=== PATIENT | female | born 1945 | race Caucasian/White ===

== ENCOUNTER → 2016-03-29 | Day surgery (SDC) | payer BC ==
[2016-03-28 15:19] VITALS: BMI 25.0
[~2016-03-29] VITALS: Ht 162.6 cm; Wt 68.2 kg
[~2016-03-29] MED LIST: BRIN3SUS OPL; CALC-20 PO; CHOL20009 PO; LIDOCAINE HCL 2% 2 ML VIAL (20MG/ML) ONE; LOSA50TA6 PO; MAGN250T3 PO; MIDAZOLAM HCL 1 MG/ML 2ML VIAL ONE; ONDANSETRON INJ 2 MG/ML 2 ML VIAL ONE; PROPOFOL IV EMULSION 10 MG/ML 20 ML VIAL IV ONE; RANI150T2 PO; SIMV20TA2 PO; SODIUM CHLORIDE 0.9% 500ML 500 ML IV ONE; WARF2TAB PO; WARF2TAB8 PO; WARF4TAB43 PO; ZNTT/150 PO
[2016-03-29 11:32] VITALS: Ht 162.6 cm; Wt 68.2 kg
--- NOTE | 2016-03-29 12:30 | Endo History and Physical ---
History & Physical Date of Service: Mar 29, 2016. Chief Complaint: Reflux Referring Physician: Dr. Albert History of Present Illness 70 yo CF who presents for EGD secondary to GERD. Past Surgical History Hx Cardiac Surgery: No Hx Internal Defibrillator: No Hx Pacemaker: No Hx Abdominal Surgery: No Hx of Implantable Prosthesis: No Hx Post-Op Nausea and Vomiting: No Hx Cancer Surgery: No Hx Thoracic Surgery: No Hx Orthopedic: No Hx Urinary Tract Surgery: No Family History None Social History Smoking Status: Never Smoker Hx Substance Use: No Hx Alcohol Use: No Allergies Coded Allergies: Ephedrine (Verified Adverse Reaction, Unknown, CAUSES BLOOD PRESSURE TO GO UP, 03/28/16) Current Medications Reported Home Medications Medications Dose Route/Sig Max Daily Dose Days Date Category Dose Instructions Simbrinza (Brinzolamide-Brimonidine Tartr) 1 Shiela Shiela 1 Drop OPL BID 03/28/16 Reported Zantac (Ranitidine HCl) 150 Mg Tab 150 Mg PO BID 03/28/16 Reported Magnesium 250 mg (Magnesium) 1 Tab Tab 1 Tab PO QAM 03/28/16 Reported Zocor (Simvastatin) 20 Mg Tab 20 Mg PO QPM 90 02/03/16 Reported Jantoven (Warfarin Sodium) 2 Mg Tab 1 Mg PO 3XWK 03/01/15 Reported Coumadin (Warfarin Sodium) 2 Mg Tab 2 Mg PO 4XWK 02/23/15 Reported Calcium 600 + D (Calcium Carbonate-Vitamin D) 1 Tab Tab 1 Tabs PO BID 02/12/13 Reported Cozaar (Losartan Potassium) 50 Mg Tab 50 Mg PO BID 02/12/13 Reported WILL TAKE IN PM DEPENDING ON BP Vital Signs Weight (Kilograms): 68.18 Height (Feet): 5 Height (Inches): 4 Date Time Temp Pulse Resp B/P Pulse Ox O2 Delivery O2 Flow Rate FiO2 03/29/16 11:43 36.7 96 20 165/69 95 Room Air Physical Exam General Appearance: WD/WN, no apparent distress Respiratory/Chest: Auscultation: breath sounds normal Cardiovascular: Heart Auscultation: RRR Abdomen: Bowel Sounds: normal Inspection & Palpation: soft, non-distended, no tenderness, guarding & rebound Assessment and Plan Assessment: 70 yo CF who presents for EGD secondary to GERD. Plan: Proceed with EGD.
--- NOTE | 2016-03-29 12:41 | Discharge Instructions ---
Endoscopy Patient Instructions Date / Procedure(s) Performed Mar 29, 2016. EGD Allergy Information Coded Allergies: Ephedrine (Verified Adverse Reaction, Unknown, CAUSES BLOOD PRESSURE TO GO UP, 03/28/16) Discharge Date / Findings Mar 29, 2016. Schatzki's Ring Hiatal hernia Medication Instructions OK to resume all medications today as prescribed Reported Home Medications Medications Dose Route/Sig Max Daily Dose Days Date Category Dose Instructions Simbrinza (Brinzolamide-Brimonidine Tartr) 1 Shiela Shiela 1 Drop OPL BID 03/28/16 Reported Zantac (Ranitidine HCl) 150 Mg Tab 150 Mg PO BID 03/28/16 Reported Magnesium 250 mg (Magnesium) 1 Tab Tab 1 Tab PO QAM 03/28/16 Reported Zocor (Simvastatin) 20 Mg Tab 20 Mg PO QPM 90 02/03/16 Reported Jantoven (Warfarin Sodium) 2 Mg Tab 1 Mg PO 3XWK 03/01/15 Reported Coumadin (Warfarin Sodium) 2 Mg Tab 2 Mg PO 4XWK 02/23/15 Reported Calcium 600 + D (Calcium Carbonate-Vitamin D) 1 Tab Tab 1 Tabs PO BID 02/12/13 Reported Cozaar (Losartan Potassium) 50 Mg Tab 50 Mg PO BID 02/12/13 Reported WILL TAKE IN PM DEPENDING ON BP Provider Instructions Activity Restrictions - No exercising or heavy lifting for 24 hours. - Do not drink alcohol the day of the procedure. - Do not drive a car or operate machinery until the day after the procedure. - Do not make any important decisions or sign important papers in 24 hours after the procedure. Following Day: - Return to full activity which may include returning to work/school. Diet Start your diet with liquids and light foods (jello, soup, juice, toast). Then eat your usual diet if not nauseated. Treatment For Common After Affects For mild abdominal pain, bloating, or excessive gas: - Rest - Eat lightly - Lie on right side Follow-Up Information Follow-up with Dr. Albert as scheduled Anesthesia Information What You Should Know You have had a procedure that required some medicine to reduce anxiety and discomfort. This treatment is called moderate sedation. After receiving the treatment, you may be sleepy, but you will be able to breathe on your own. The effects of the treatment may last for several hours. Follow these instructions along with Activity/Diet recommendations noted above: * Do NOT do anything where dizziness or clumsiness would be dangerous. * Rest quietly at home today, then you can be up and about tomorrow. * Have a responsible person stay with you the rest of today. * You may have had an I.V. today. If so, you may take the dressing off later today. Recommendations Call your doctor if: * Trouble breathing * Continuous vomiting for more than 24 hours * Temperature above 101 degrees * Severe abdominal pain or bloating * Pain not relieved by pain medicine ordered * There is increased drainage or redness from any incision * A large amount of rectal bleeding greater than 2-3 tablespoons. (If you had a polyp/s removed or have hemorrhoids, a small amount of blood - from the rectum is to be expected.) * You have any unanswered questions or concerns. IN THE EVENT OF A SERIOUS EMERGENCY, GO TO THE NEAREST EMERGENCY ROOM Your discharge instructions were prepared by provider Angel John. Patient Instructions Signature Page Zakiya Cooper Patient (or Guardian) Signature/Date: I have read and understand the instructions given to me by my caregivers. Caregiver/RN/Doctor Signature/Date: The above-named patient and/or guardian has received patient instructions on this date. + Original Patient Signature Page (only) stays with chart. Please make copy for patient.
--- NOTE | 2016-03-29 12:44 | GI REPORT ---
Procedure Date: 03/29/2016 12:14 PM Procedure: Upper GI endoscopy Indications: Follow-up of gastro-esophageal reflux disease Medicines: Monitored Anesthesia Care Complications: No immediate complications. Estimated Blood Loss: Estimated blood loss: none. Procedure: Pre-Anesthesia Assessment: - Prior to the procedure, a History and Physical was performed, and patient medications and allergies were reviewed. The patient's tolerance of previous anesthesia was also reviewed. The risks and benefits of the procedure and the sedation options and risks were discussed with the patient. All questions were answered, and informed consent was obtained. Prior Anticoagulants: The patient has taken Coumadin (warfarin), last dose was 5 days prior to procedure. ASA Grade Assessment: III - A patient with severe systemic disease. After reviewing the risks and benefits, the patient was deemed in satisfactory condition to undergo the procedure. After obtaining informed consent, the endoscope was passed under direct vision. Throughout the procedure, the patient's blood pressure, pulse, and oxygen saturations were monitored continuously. The Scope was introduced through the mouth, and advanced to the second part of duodenum. The upper GI endoscopy was accomplished without difficulty. The patient tolerated the procedure well. Findings: A mild Schatzki ring (acquired) was found at the gastroesophageal junction. A small hiatus hernia was present. The examined duodenum was normal. Impression: - Mild Schatzki ring. - Small hiatus hernia. - Normal examined duodenum. - No specimens collected. Recommendation: - Resume previous diet. - Continue present medications. - Repeat the upper endoscopy PRN for retreatment. - Return to primary care physician as previously scheduled. Angel John, DO 03/29/2016 12:43:24 PM This report has been signed electronically. Note Initiated On: 03/29/2016 12:14 PM
[2016-03-29 13:28] VITALS: BP 117/55; PULSE 83; O2SAT 97
--- NOTE | 2016-03-29 14:06 | Anesthesiology Progress Note ---
Anesthesia Post Op Note Date & Time Mar 29, 2016 at 14:05 Vital Signs Pain Intensity: 0 Vital Signs Past 12 Hours Date Time Temp Pulse Resp B/P Pulse Ox O2 Delivery O2 Flow Rate FiO2 03/29/16 13:28 83 18 117/55 97 Room Air 03/29/16 13:17 85 18 110/58 97 Room Air 03/29/16 13:02 90 18 115/55 97 Nasal Cannula 2 03/29/16 12:48 92 18 114/54 95 Nasal Cannula 2 03/29/16 11:43 36.7 96 20 165/69 95 Room Air Notes Mental Status: alert / awake / arousable, participated in evaluation Pt Amnestic to Procedure: Yes Nausea / Vomiting: adequately controlled Pain: adequately controlled Airway Patency, RR, SpO2: stable & adequate BP & HR: stable & adequate Hydration State: stable & adequate Anesthetic Complications: no major complications apparent
== END | disposition home or self-care (01) ==
LOC: C.GI 11:18
PROVIDERS: ATTEND Internal Medicine
DX: K21.9 Gastro-esophageal reflux disease without esophagitis (principal); K22.2 Esophageal obstruction; K44.9 Diaphragmatic hernia without obstruction or gangrene; I10 Essential (primary) hypertension; Z68.25 Body mass index [BMI] 25.0-25.9, adult; Z86.718 Personal history of other venous thrombosis and embolism

== ENCOUNTER → 2016-04-07 | Outpatient (CLI) | payer BC, OTHER ==
[~2016-04-07] MED LIST changes: -LIDOCAINE HCL 2% 2 ML VIAL (20MG/ML) ONE; -MIDAZOLAM HCL 1 MG/ML 2ML VIAL ONE; -ONDANSETRON INJ 2 MG/ML 2 ML VIAL ONE; -PROPOFOL IV EMULSION 10 MG/ML 20 ML VIAL IV ONE; -SODIUM CHLORIDE 0.9% 500ML 500 ML IV ONE
[2016-04-07 14:55] LABS: URINE APPEARANCE CLEAR (CLEAR); URINE BILIRUBIN NEG (NEG); URINE COLOR YELLOW; URINE NITRITE NEG (NEG); URINE PH 5.5 (4.5-7.5); URINE SPECIFIC GRAVITY 1.016 (1.000-1.030); UROBILINOGEN NEG (NEG); ZZUR CULT IF INDIC CLEAN CATCH NO
[2016-04-07 15:01] LABS: MANUAL MICROSCOPIC REQUIRED? NO; REVIEW REQ? NO
== END | disposition home or self-care (01) ==
LOC: C.LABSPEC 15:13
PROVIDERS: ATTEND Family Medicine
DX: R39.9 Unspecified symptoms and signs involving the genitourinary system (principal); R10.9 Unspecified abdominal pain

== ENCOUNTER → 2016-04-07 | Outpatient (CLI) | payer BC ==
--- NOTE | 2016-04-07 12:27 | DIAGNOSTIC IMAGING REPORT ---
CHEST 2 VIEWS ROUTINE HISTORY: R05 [id number] Acute flank pain COMPARISON: Chest 03/11/2015. FINDINGS: The lungs are clear. The heart is normal in size. No pneumothorax. There is blunting of the bilateral costophrenic sulci posteriorly. Degenerative changes within the thoracic spine. IMPRESSION: 1. No focal lung consolidations. 2. Blunting of the bilateral posterior costophrenic sulci. This favors trace bilateral pleural effusions. Electronically signed by: Kenji Ayon M.D. 04/07/2016 12:25 PM Dictated Date/Time: 04/07/2016 12:23 PM
== END | disposition home or self-care (01) ==
LOC: C.RAD1850 12:02
PROVIDERS: ATTEND Family Medicine
DX: R10.9 Unspecified abdominal pain (principal); R05 Cough

== ENCOUNTER 2016-08-26 10:05 | Emergency (ER) | payer BC ==
[~2016-08-26] VITALS: Ht 165.1 cm; Wt 67.0 kg
[~2016-08-26 10:05] MED LIST changes: -RANI150T2 PO; -WARF4TAB43 PO
[2016-08-26 10:11] VITALS: TEMP 36.7; Ht 165.1 cm; Wt 67.0 kg
[2016-08-26] MEDS ORDERED: RANI150T2 PO (10:30)
[2016-08-26] MEDS ORDERED: WARF4TAB43 PO (10:30)
[2016-08-26 10:56] LABS: BASO % 0.8 %; BASO ABS # 0.05 K/uL (0-0.2); COMPLETE YES; EOS % 0.7 %; IG% 0.3 %; LYMPH % 36.7 %; LYMPH ABS # 2.21 K/uL (1.2-3.4); MEAN CORPUSCULAR HEMOGLOBIN 29.8 pg (25-34); MEAN CORPUSCULAR HGB CONC 33.9 g/dl (32-36); MEAN PLATELET VOLUME 10.2 fL (7.4-10.4); MONO % 8.5 %; PLATELET COUNT 253 K/uL (130-400); WHITE BLOOD COUNT 6.02 K/uL (4.8-10.8)
[2016-08-26 11:10] LABS: CALCIUM 9.3 mg/dl (8.5-10.1); CREATININE 1.1 mg/dl (0.60-1.20); POTASSIUM 3.7 mmol/L (3.5-5.1)
[2016-08-26 11:13] LABS: ALB/GLOB RATIO 1.1 (0.9-2)
[2016-08-26 11:26] LABS: INR 2.3 (0.9-1.1); PARTIAL THROMBOPLASTIN RATIO 1.4; PROTHROMBIN TIME (PATIENT) 25.3 SECONDS (9.0-12.0)
--- NOTE | 2016-08-26 11:30 | EMERGENCY ROOM VISIT NOTE ---
History Report prepared by Noah: Karen Morales Under the Supervision of: Dr. Faizan Romano M.D. First contact with patient: 11:04 Chief Complaint: HYPERTENSION Stated Complaint: FLUCTUATIONS OF BLOOD PRESSURE, PRESSURE IN HEAD History of Present Illness The patient is a 71 year old female who presents to the Emergency Room with complaints of waxing and waning hypertension for the past week. The patient reports a history of hypertension, noting that she takes Cozaar for her hypertension. She states that over the last week her levels have been fluctuating. The patient additionally associates weakness, fatigue, and head pressure with her symptoms today. She additionally reports that she has a history of PE and DVTs, noting that she is on Coumadin. The patient expresses concern for a new blood clot, and is unsure if that is why her blood pressure has risen. She reports that typically can get her blood pressure under control. The patient reports that on August 08 she had a blood pressure of 200 mmHg systolically. She states that today it has fluctuated between 100 mmHg and 150 mmHg. The patient reports normal bowel movements. She associates back pain for the past few days. Source of History: patient Onset: past week Position: other (global) Symptom Intensity: 100-150 mmHg Quality: other (hypertension) Timing: waxes/wanes Associated Symptoms: + headache (pressure), + back pain, + fatigue, + weakness Review of Systems All systems have been listed, reviewed, and are negative other than those previously mentioned. Please see Additional Medical History Sheet. Past Medical & Surgical Medical Problems: (1) Bilateral pulmonary embolism (2) Heart disease (3) Hypertension Family History FHx: heart disease Hypertension Social History Smoking Status: Never Smoker Smokeless Tobacco Use: No Alcohol Use: none Marital Status: Housing Status: lives with family Occupation Status: retired Current/Historical Medications Scheduled Brinzolamide-Brimonidine Tartr (Simbrinza), 1 DROP OPL BID Calcium Carbonate-Vitamin D (Calcium 600 + D), 1 TABS PO BID Cholecalciferol (Vitamin D), 1 TAB PO BID Losartan Potassium (Cozaar), 50 MG PO BID Magnesium (Magnesium 250 mg), 1 TAB PO QAM Ranitidine (Zantac), 150 MG PO BID Ranitidine HCl (Ranitidine HCl), 150 MG PO BID Simvastatin (Zocor), 20 MG PO QPM Warfarin Sodium (Coumadin), 2 MG PO 4XWK Warfarin Sodium (Warfarin Sodium), 1 MG PO 3XWK Allergies Coded Allergies: Ephedrine (Verified Adverse Reaction, Unknown, CAUSES BLOOD PRESSURE TO GO UP, 08/26/16) Physical Exam Vital Signs Date Time Temp Pulse Resp B/P (MAP) Pulse Ox O2 Delivery O2 Flow Rate FiO2 08/26/16 13:33 74 14 136/68 08/26/16 13:18 70 16 08/26/16 13:03 65 15 08/26/16 13:02 133/70 08/26/16 12:48 74 25 08/26/16 12:43 80 13 08/26/16 12:28 81 22 97 08/26/16 12:13 80 17 97 08/26/16 12:02 138/85 08/26/16 11:58 77 23 98 08/26/16 11:28 81 19 08/26/16 11:23 154/96 08/26/16 11:20 91 17 08/26/16 11:05 85 19 08/26/16 10:50 91 14 08/26/16 10:40 150/88 08/26/16 10:35 93 15 08/26/16 10:24 103 08/26/16 10:20 105 14 08/26/16 10:11 36.7 112 17 140/75 99 Room Air Physical Exam GENERAL: Patient awake, alert, oriented x 3. Patient is very anxious. Patient follows commands. Patient does not appear toxic. Patient is adequately hydrated and well-nourished. SKIN: No erythema, pallor, cyanosis or rash HEENT: Normal head, pupils equal, reactive to light and accommodation. Ears normal. Oral cavity and posterior pharynx appear normal. Neck: Without adenopathy, no neck vein distention. LUNGS: Clear to auscultation. No wheezes, no rales, no rhonchi. HEART: No murmurs. No gallops. No rubs ABDOMEN: No masses, no rebound, no hepatomegaly or splenomegaly. BACK: Left upper back pain to palpation. EXTREMITIES: No signs of trauma. No pedal or pretibial edema. No calf or thigh tenderness. NEUROLOGIC: Cranial nerves II-XII within normal limits. No gross motor sensory function deficits. PSYCH: Patient is very anxious. Medical Decision & Procedures ER Provider Diagnostic Interpretation: X ray results are stated below per my interpretation and the radiologist's interpretation. CHEST 2 VIEWS ROUTINE CLINICAL HISTORY: Left upper back pain. COMPARISON STUDY: Chest radiograph April 07, 2016. FINDINGS: Lung volumes are normal. There is no pneumothorax or pleural effusion. Cardiac size is normal. There is no evidence of pulmonary edema. Blunting of the bilateral costophrenic angles suggests trace bilateral pleural effusions. There is no consolidation. IMPRESSION: 1. No consolidation to suggest pneumonia. 2. No pneumothorax. 3. Suspected trace bilateral pleural effusions. Electronically signed by: Neeraj Carrera M.D. 08/26/2016 12:10 PM Dictated Date/Time: 08/26/2016 12:08 PM Laboratory Results 08/26/16 10:38 Red Blood Count 5.00, Mean Corpuscular Volume 88.0, Mean Corpuscular Hemoglobin 29.8, Mean Corpuscular Hemoglobin Concent 33.9, Mean Platelet Volume 10.2, Neutrophils (%) (Auto) 53.0, Lymphocytes (%) (Auto) 36.7, Monocytes (%) (Auto) 8.5, Eosinophils (%) (Auto) 0.7, Basophils (%) (Auto) 0.8, Neutrophils # (Auto) 3.19, Lymphocytes # (Auto) 2.21, Monocytes # (Auto) 0.51, Eosinophils # (Auto) 0.04, Basophils # (Auto) 0.05 08/26/16 10:38 Test 08/26/16 10:38 White Blood Count 6.02 K/uL (4.8-10.8) Red Blood Count 5.00 M/uL (4.2-5.4) Hemoglobin 14.9 g/dL (12.0-16.0) Hematocrit 44.0 % (37-47) Mean Corpuscular Volume 88.0 fL (80-100) Mean Corpuscular Hemoglobin 29.8 pg (25-34) Mean Corpuscular Hemoglobin Concent 33.9 g/dl (32-36) Platelet Count 253 K/uL (130-400) Mean Platelet Volume 10.2 fL (7.4-10.4) Neutrophils (%) (Auto) 53.0 % Lymphocytes (%) (Auto) 36.7 % Monocytes (%) (Auto) 8.5 % Eosinophils (%) (Auto) 0.7 % Basophils (%) (Auto) 0.8 % Neutrophils # (Auto) 3.19 K/uL (1.4-6.5) Lymphocytes # (Auto) 2.21 K/uL (1.2-3.4) Monocytes # (Auto) 0.51 K/uL (0.11-0.59) Eosinophils # (Auto) 0.04 K/uL (0-0.5) Basophils # (Auto) 0.05 K/uL (0-0.2) RDW Standard Deviation 44.4 fL (36.4-46.3) RDW Coefficient of Variation 13.7 % (11.5-14.5) Immature Granulocyte % (Auto) 0.3 % Immature Granulocyte # (Auto) 0.02 K/uL (0.00-0.02) Prothrombin Time 25.3 SECONDS (9.0-12.0) Prothromb Time International Ratio 2.3 (0.9-1.1) Activated Partial Thromboplast Time 36.2 SECONDS (21.0-31.0) Partial Thromboplastin Ratio 1.4 Anion Gap 10.0 mmol/L (3-11) Est Creatinine Clear Calc Drug Dose 41.0 ml/min Estimated GFR () 57.7 Estimated GFR (Non- 49.8 BUN/Creatinine Ratio 15.0 (10-20) Calcium Level 9.3 mg/dl (8.5-10.1) Total Bilirubin 1.5 mg/dl (0.2-1) Aspartate Amino Transf (AST/SGOT) 14 U/L (15-37) Alanine Aminotransferase (ALT/SGPT) 28 U/L (12-78) Alkaline Phosphatase 88 U/L (45-117) Troponin I < 0.015 ng/ml (0-0.045) Total Protein 7.9 gm/dl (6.4-8.2) Albumin 4.1 gm/dl (3.4-5.0) Globulin 3.8 gm/dl (2.5-4.0) Albumin/Globulin Ratio 1.1 (0.9-2) Laboratory results as stated above per my review. ECG Indication: other (hypertension) Rate (beats per minute): 99 Rhythm: normal sinus Findings: no acute ischemic change, no ectopy ED Course 1105: Past medical records reviewed. The patient was evaluated in room B10. A complete history and physical examination was performed. 1235: I reevaluated the patient and she is still very anxious. I discussed the exam findings with her and her daughter and I discussed the treatment plan. They verbalized complete understanding and agreement. The patient is ready to go home. Medical Decision Nurses notes reviewed. Medical history sheet reviewed. Differential diagnosis includes but is not limited to: anxiety, hypertension, history of DVT and PE. The patient is extremely anxious. She has been adjusting her losartan and diuretic according to her blood pressure. Testing today including multiple blood tests, EKG and imaging did not reveal any significant pathology. She does have some very small bilateral pleural effusions which I do not believe require treatment. I have attempted to reassure the patient. I told the patient that she should take the same antihypertensive and diuretic daily unless she has significant peripheral edema. The patient was also encouraged to follow-up with her family physician. Blood Pressure Screening: Patient was found to have an elevated blood pressure and was referred to their primary doctor for recheck and further treatment. Medication Reconciliation: I attest that I have personally reviewed the patient' s current medication list. Impression Primary Impression: Hypertension Additional Impression: Anxiety Scribe Attestation The scribe's documentation has been prepared under my direction and personally reviewed by me in its entirety. I confirm that the note above accurately reflects all work, treatment, procedures, and medical decision making performed by me. Departure Information Dispostion Home / Self-Care Referrals Manuelito Albert M.D. (PCP) Forms HOME CARE DOCUMENTATION FORM, IMPORTANT VISIT INFORMATION Patient Instructions My [facility] [employer] Additional Instructions Take the same amount of losartan and diuretic on a daily basis. Follow-up with Dr. Albert within the next 10 days. Problem Qualifiers
--- NOTE | 2016-08-26 12:11 | DIAGNOSTIC IMAGING REPORT ---
CHEST 2 VIEWS ROUTINE CLINICAL HISTORY: Left upper back pain. COMPARISON STUDY: Chest radiograph April 07, 2016. FINDINGS: Lung volumes are normal. There is no pneumothorax or pleural effusion. Cardiac size is normal. There is no evidence of pulmonary edema. Blunting of the bilateral costophrenic angles suggests trace bilateral pleural effusions. There is no consolidation. IMPRESSION: 1. No consolidation to suggest pneumonia. 2. No pneumothorax. 3. Suspected trace bilateral pleural effusions. Electronically signed by: Neeraj Carrera M.D. 08/26/2016 12:10 PM Dictated Date/Time: 08/26/2016 12:08 PM
[2016-08-26 12:28] VITALS: O2SAT 97
[2016-08-26 13:33] VITALS: BP 136/68; PULSE 74
[2016-12-28] MEDS ORDERED: PHYT100T PO (14:22)
[2017-01-19] MEDS ORDERED: SIME1CHW3 PO (09:36)
[2017-02-15] MEDS ORDERED: DORZ1SOL6 OPL (15:02)
== END 2016-08-26 13:46 | disposition home or self-care (01) ==
LOC: C.EDB 10:06
DX: I10 Essential (primary) hypertension (principal); F41.9 Anxiety disorder, unspecified; I26.99 Other pulmonary embolism without acute cor pulmonale; I51.9 Heart disease, unspecified; Z82.49 Family history of ischemic heart disease and other diseases of the circulatory system; Z79.01 Long term (current) use of anticoagulants; Z51.81 Encounter for therapeutic drug level monitoring

== ENCOUNTER 2016-12-08 09:18 | Emergency (ER) | payer BC ==
[~2016-12-08] VITALS: Ht 162.6 cm; Wt 69.5 kg
[~2016-12-08 09:18] MED LIST changes: -LOSA50TA6 PO; -WARF2TAB8 PO; +WARF4TAB43 PO
[2016-12-08 09:25] VITALS: TEMP 36.6; Ht 162.6 cm; Wt 69.5 kg
[2016-12-08 11:31] LABS: LYME DISEASE AB IGG NEG (NEG); LYME DISEASE AB IGM NEG (NEG)
[2016-12-08 11:41] VITALS: BP 167/99; PULSE 84; O2SAT 98
--- NOTE | 2016-12-08 15:32 | EMERGENCY ROOM VISIT NOTE ---
History Report prepared by Noah: Karen Morales Under the Supervision of: Yeni CardonaO. First contact with patient: 09:33 Chief Complaint: BITE Stated Complaint: INSECT BITE/ITCHING/PAINFUL History of Present Illness The patient is a 71 year old female who presents to the Emergency Room with complaints of a sudden insect bite to her right leg that occurred several days ago. The patient reports that she saw the bite yas on Sunday and states that she developed a rash and pain to the area. The patient states that she is concerned about Lyme Disease. She states that she does not know what bit her. The patient states that she takes Coumadin, noting that her INR yesterday was 2.1. Pt denies headache, change in vision, fevers, chest pain, shortness of breath, nausea, vomiting, diarrhea, and pain with urination. Source of History: patient Onset: several days ago Position: leg (right) Quality: other (insect bite) Timing: other (sudden) Associated Symptoms: + rash Review of Systems See HPI for pertinent positives & negatives. A total of 10 systems reviewed and were otherwise negative. Past Medical & Surgical Medical Problems: (1) Bilateral pulmonary embolism (2) Heart disease (3) Hypertension Family History FHx: heart disease Hypertension Social History Smoking Status: Never Smoker Alcohol Use: none Marital Status: Housing Status: lives with family Occupation Status: retired Current/Historical Medications Scheduled Brinzolamide-Brimonidine Tartr (Simbrinza), 1 DROP OPL BID Calcium Carbonate-Vitamin D (Calcium 600 + D), 1 TABS PO BID Cholecalciferol (Vitamin D), 1 TAB PO BID Magnesium (Magnesium 250 mg), 1 TAB PO QAM Ranitidine (Zantac), 150 MG PO BID Simvastatin (Zocor), 20 MG PO QPM Warfarin Sodium (Coumadin), 2 MG PO 3XWK Warfarin Sodium (Warfarin Sodium), 1 MG PO 4XWK Allergies Coded Allergies: Ephedrine (Verified Adverse Reaction, Unknown, CAUSES BLOOD PRESSURE TO GO UP, 12/08/16) Physical Exam Vital Signs Date Time Temp Pulse Resp B/P (MAP) Pulse Ox O2 Delivery O2 Flow Rate FiO2 12/08/16 11:41 84 18 167/99 98 Room Air 12/08/16 10:31 86 18 151/91 97 Room Air 12/08/16 09:25 36.6 110 17 171/104 98 Room Air Physical Exam GENERAL: alert, well appearing, well nourished, no distress, non-toxic LUNGS: Clear to auscultation. Normal chest wall mechanics HEART: no murmurs, S1 normal and S2 normal ABDOMEN: abdomen soft, non-tender, normo-active bowel sounds, no masses, no rebound or guarding. SKIN: At the right posterior popliteal fossa there is a 1.5 cm x 1.5 cm area of erythema with a central pustule. UPPER EXTREMITIES: upper extremities are grossly normal. LOWER EXTREMITIES: No pitting edema. NEURO EXAM: Normal sensorium. Medical Decision & Procedures Laboratory Results Test 12/08/16 10:29 Lyme Disease IgG Antibody NEG (NEG) Lyme Disease IgM Antibody NEG (NEG) Laboratory results per my review. ED Course ED COURSE: Vital signs were reviewed and showed hypertensive The patients medical record was reviewed The above diagnostic studies were performed and reviewed. ED treatments and interventions as stated above. 0944: The patient was evaluated in room B5. A complete history and physical examination was performed. 1202: Upon reevaluation, the patient is resting comfortably.I discussed my findings with the patient and she understands and agrees with the treatment plan. Based on the patients age, coexisting illnesses, exam and lab findings the decision to treat as an outpatient was made. The patient remained stable while under my care. The patient appeared well at the time of discharge. Medical Decision Differential diagnosis includes etiologies such as cellulitis, abscess, MRSA infection, DVT, necrotizing fasciitis, dermatitis, drug eruption, as well as others were entertained. Patient is a 71-year-old female that presents to ER for erythema and concern of a tick bite in her right popliteal fossa. On exam he does appear to be a pustule. Lyme was obtained and was negative. Pustule was broken open. She is discharged follow-up with her PCP. There is no significant surrounding erythema without no benefit of antibiotics at this time. Discussed with Pt concerning signs and symptoms to watch out for. Pt was instructed to follow up with their PCP and discussed with the patient their option to return to the ED at anytime for persistent or worsening symptoms. The appropriate anticipatory guidance and out-patient management, including indications for return to the emergency department, were explained at length to the patient and understood. Medication Reconcilliation Current Medication List: was personally reviewed by me Blood Pressure Screening Patient's blood pressure: Elevated blood pressure Blood pressure disposition: Elevated BP felt to be situational, Did not require urgent referral Impression Primary Impression: Pustule Scribe Attestation The scribe's documentation has been prepared under my direction and personally reviewed by me in its entirety. I confirm that the note above accurately reflects all work, treatment, procedures, and medical decision making performed by me. Departure Information Dispostion Home / Self-Care Referrals ProManuelito M.D. (PCP) Forms HOME CARE DOCUMENTATION FORM, IMPORTANT VISIT INFORMATION Patient Instructions ED Cyst Sebaceous Infec Chandu, My [facility] Additional Instructions You were found to have a small skin pustule which did open up. His keep this clean dry. If you have any surrounding spreading of the redness, fevers or any other concerning signs or symptoms please return to the ER immediately.
[2016-12-28] MEDS ORDERED: PHYT100T PO (14:22)
== END 2016-12-08 12:12 | disposition home or self-care (01) ==
LOC: C.EDB 09:19
DX: L08.9 Local infection of the skin and subcutaneous tissue, unspecified (principal); I10 Essential (primary) hypertension; Z86.711 Personal history of pulmonary embolism; Z82.49 Family history of ischemic heart disease and other diseases of the circulatory system; Z79.01 Long term (current) use of anticoagulants

== ENCOUNTER → 2016-12-21 | Outpatient (CLI) | payer BC ==
--- NOTE | 2016-12-21 10:43 | DIAGNOSTIC IMAGING REPORT ---
ABDOMINAL ULTRASOUND, RIGHT UPPER QUADRANT HISTORY: Elevated bilirubin. COMPARISON: Abdominal ultrasound July 02, 2014, CT of the abdomen and pelvis March 02, 2015 and MRI of the abdomen March 07, 2016. FINDINGS: Liver morphology is normal. There is no biliary ductal dilatation. The common bile duct measures 6 mm in caliber. There are are no gallstones. A few small gallbladder polyps are noted. There is no gallbladder wall thickening. The pancreatic body is normal. The head and tail are partially obscured. There is no right hydronephrosis. A 9 mm right renal cyst is noted. IMPRESSION: No gallstones or biliary ductal dilatation. Electronically signed by: Neeraj Carrera M.D. 12/21/2016 10:42 AM Dictated Date/Time: 12/21/2016 10:40 AM
== END | disposition home or self-care (01) ==
LOC: C.ULTR 09:59
PROVIDERS: ATTEND Physician Assistant
DX: R17 Unspecified jaundice (principal)

== ENCOUNTER 2016-12-29 01:04 | Emergency (ER) | payer BC ==
[~2016-12-29] VITALS: Ht 162.6 cm; Wt 67.0 kg
[~2016-12-29 01:04] MED LIST changes: -SINCALIDE INJ 1.3 MCG in SODIUM CHLORIDE 0.9% 100ML 100 ML IV SCH
[2016-12-29 01:10] VITALS: TEMP 36.3; Ht 162.6 cm; Wt 67.0 kg
--- NOTE | 2016-12-29 01:28 | EMERGENCY ROOM VISIT NOTE ---
History Report prepared by Noah: John Rangel Under the Supervision of: Dr. Steffanie Huggins D.O. First contact with patient: 01:13 Chief Complaint: CARDIAC ASSESSMENT Stated Complaint: CARDIO ASSESSMENT History of Present Illness The patient is a 71 year old female who presents to the Emergency Room with complaints of a constant irregular heartbeat that began at 1700. She states that she saw her doctor today and her INR level was 4.6. The patient reports that she normally takes 300 mcg of Vitamin K three times a week. She states that her doctor gave her an additional 100 mcg due to her elevated INR level. She reports that she took her Vitamin K at 1600 and started to experience an irregular heartbeat an hour later. The patient admits to a history of pulmonary emboli. She states that she has been experiencing diarrhea for a while, but admits that it is not as severe currently as it was in the past. The patient admits to being on Coumadin. The patient denies chest pain, shortness of breath , cough, cold, abdominal pain, and a history of a heart attack. Source of History: patient Onset: 1700 Position: other (global) Quality: other (irregular heartbeat) Timing: constant Associated Symptoms: + diarrhea, No cough, No chest pain, No SOB, No abdominal pain Review of Systems See HPI for pertinent positives & negatives. A total of 10 systems reviewed and were otherwise negative. Past Medical & Surgical Medical Problems: (1) Bilateral pulmonary embolism (2) Heart disease (3) Hypertension Family History FHx: heart disease Hypertension Social History Smoking Status: Never Smoker Alcohol Use: none Marital Status: Housing Status: lives with family Occupation Status: retired Current/Historical Medications Scheduled Brinzolamide-Brimonidine Tartr (Simbrinza), 1 DROP OPL BID Calcium Carbonate-Vitamin D (Calcium 600 + D), 1 TABS PO BID Cholecalciferol (Vitamin D), 1 TAB PO BID Magnesium (Magnesium 250 mg), 1 TAB PO QAM Phytonadione (Vitamin K), 100 MCG PO 3XWK Ranitidine (Zantac), 150 MG PO BID Simvastatin (Zocor), 20 MG PO QPM Warfarin Sodium (Coumadin), 2 MG PO 2XWK Warfarin Sodium (Warfarin Sodium), 1 MG PO 5XWK Allergies Coded Allergies: Ephedrine (Verified Adverse Reaction, Unknown, CAUSES BLOOD PRESSURE TO GO UP, 12/29/16) Physical Exam Vital Signs Date Time Temp Pulse Resp B/P (MAP) Pulse Ox O2 Delivery O2 Flow Rate FiO2 12/29/16 02:57 92 18 169/96 98 12/29/16 01:20 100 12/29/16 01:10 36.3 79 18 194/105 99 Room Air Physical Exam HEENT: Head - normocephalic and atraumatic Pupils are equal, round, and reactive to light. Extraocular eye muscles are intact, and sclera are anicteric. Nose - moist nasal mucosa without discharge. Mouth - moist buccal mucosa. Oropharynx is nonerythematous and there is no tonsillar exudate or edema noted. Neck: Supple; no JVD, nuchal rigidity, cervical lymphadenopathy. Heart: Irregular heart beat. Regular Rate. a normal S1 and S2 with no murmurs , clicks, or gallops appreciated. Lungs: Clear to auscultation bilaterally with no wheezes, rales, or rhonchi. Abdomen: Soft, completely nontender, nondistended, with good bowel sounds. There are no palpable pulsatile masses or hepatosplenomegaly. There is no guarding, rigidity, or rebound noted. Extremities: No evidence of cyanosis, clubbing, or edema. There are easily palpable peripheral pulses. Skin: warm and dry with good turgor and no rashes. Medical Decision & Procedures Laboratory Results 12/29/16 01:20 12/29/16 01:20 Test 12/29/16 01:20 Red Blood Count 5.19 M/uL (4.2-5.4) Mean Corpuscular Volume 87.3 fL (80-100) Mean Corpuscular Hemoglobin 29.5 pg (25-34) Mean Corpuscular Hemoglobin Concent 33.8 g/dl (32-36) RDW Standard Deviation 42.5 fL (36.4-46.3) RDW Coefficient of Variation 13.4 % (11.5-14.5) Mean Platelet Volume 10.4 fL (7.4-10.4) Prothrombin Time 38.8 SECONDS (9.0-12.0) Prothromb Time International Ratio 3.4 (0.9-1.1) Activated Partial Thromboplast Time 42.7 SECONDS (21.0-31.0) Partial Thromboplastin Ratio 1.6 Anion Gap 6.0 mmol/L (3-11) Est Creatinine Clear Calc Drug Dose 42.9 ml/min Estimated GFR () 57.7 Estimated GFR (Non- 49.8 BUN/Creatinine Ratio 14.5 (10-20) Calcium Level 9.5 mg/dl (8.5-10.1) Total Bilirubin 1.2 mg/dl (0.2-1) Direct Bilirubin 0.2 mg/dl (0-0.2) Aspartate Amino Transf (AST/SGOT) 26 U/L (15-37) Alanine Aminotransferase (ALT/SGPT) 32 U/L (12-78) Alkaline Phosphatase 86 U/L (45-117) Creatine Kinase MB 2.1 ng/ml (0.5-3.6) Creatine Kinase MB Ratio (0-3.0) Troponin I < 0.015 ng/ml (0-0.045) Pro-B-Type Natriuretic Peptide 400 pg/ml (0-900) Total Protein 8.2 gm/dl (6.4-8.2) Albumin 4.3 gm/dl (3.4-5.0) Thyroid Stimulating Hormone (TSH) 3.840 uIu/ml (0.300-4.500) Chemistry Specimen Hemolysis Laboratory results per my review. ECG Indication: other (irregular heartbeat) Rate (beats per minute): 94 Rhythm: normal sinus Findings: no acute ischemic change, other (frequent PVCs) ED Course 0117: The patient was evaluated in room A02. A complete history and physical examination were performed. Nursing notes and previous electronic medical records were reviewed. IV lock was established and labs were drawn as above. The patient was observed on the collision worker and pulse oximeter. A twelve- lead EKG was obtained as described above. 0244: I reevaluated the patient and she feels better. Her PVCs are still present but less frequent. I discussed findings and results with her. The patient verbalized agreement of the treatment plan. She was discharged home. Medical Decision The patient is a 71 year old female who presents to the ED with palpitations after that began at 1700. Differential diagnosis includes electrolyte imbalance , hyperthyroidism, Cardiac dysrhythmia, and dehydration. Lab results show: Normal white count, stable H&H, Normal TSH, Cardiac enzyme negative, glucose 108, normal renal function, LFTs normal, INR 3.4. the patient presents to the emergency department after feeling an irregular heartbeat. She thought that it may have something to do with taking the extra vitamin K. She has no associated chest pain or shortness of breath. She is not lightheaded. encouraged the patient to follow-up with her PCP if the palpitations do not resolve. If she develops worsening symptoms, she should return here to the ER. Medication Reconcilliation Current Medication List: was personally reviewed by me Blood Pressure Screening Patient's blood pressure: Elevated blood pressure Blood pressure disposition: Elevated BP felt to be situational Impression Primary Impression: PVC's (premature ventricular contractions) Scribe Attestation The scribe's documentation has been prepared under my direction and personally reviewed by me in its entirety. I confirm that the note above accurately reflects all work, treatment, procedures, and medical decision making performed by me. Departure Information Dispostion Home / Self-Care Referrals Manuelito Albert M.D. (PCP) Forms IMPORTANT VISIT INFORMATION Patient Instructions My [facility], Premature Ventricular Contract About, Premature Ventricular Contract Tx Additional Instructions Rest. Keep yourself well-hydrated. Return to the ER if you develop shortness of breath, chest pain, or lightheadedness
[2016-12-29 01:50] LABS: HEMATOCRIT 45.3 % (37-47); MEAN CELL VOLUME 87.3 fL (80-100); MEAN CORPUSCULAR HEMOGLOBIN 29.5 pg (25-34); MEAN CORPUSCULAR HGB CONC 33.8 g/dl (32-36); MEAN PLATELET VOLUME 10.4 fL (7.4-10.4); PLATELET COUNT 276 K/uL (130-400); RED BLOOD COUNT 5.19 M/uL (4.2-5.4); WHITE BLOOD COUNT 8.18 K/uL (4.8-10.8)
[2016-12-29 01:57] LABS: INR 3.4 (0.9-1.1); PARTIAL THROMBOPLASTIN RATIO 1.6; PROTHROMBIN TIME (PATIENT) 38.8 SECONDS (9.0-12.0)
[2016-12-29 02:04] LABS: ALT/SGPT 32 U/L (12-78); BLOOD UREA NITROGEN 16 mg/dl (7-18); BUN/CREATININE RATIO 14.5 (10-20); CALCIUM 9.5 mg/dl (8.5-10.1); CARBON DIOXIDE 27 mmol/L (21-32); CHLORIDE 106 mmol/L (98-107); GLUCOSE 108 mg/dl (70-99); POTASSIUM 3.7 mmol/L (3.5-5.1); SODIUM 139 mmol/L (136-145)
[2016-12-29 02:08] LABS: ALKALINE PHOSPHATASE 86 U/L (45-117); AST/SGOT 26 U/L (15-37)
[2016-12-29 02:57] VITALS: BP 169/96; PULSE 92; O2SAT 98
== END 2016-12-29 02:58 | disposition home or self-care (01) ==
LOC: C.EDB 01:05 → C.EDA 02:58
DX: I49.3 Ventricular premature depolarization (principal); R19.7 Diarrhea, unspecified; I10 Essential (primary) hypertension; Z86.711 Personal history of pulmonary embolism; Z79.01 Long term (current) use of anticoagulants

== ENCOUNTER → 2016-12-29 | Outpatient (CLI) | payer BC ==
[~2016-12-29] MED LIST changes: +PHYT100T PO; +SINCALIDE INJ 1.3 MCG in SODIUM CHLORIDE 0.9% 100ML 100 ML IV SCH
--- NOTE | 2016-12-29 13:11 | DIAGNOSTIC IMAGING REPORT ---
NUCLEAR MEDICINE HEPATOBILIARY SCAN WITH GALLBLADDER EJECTION FRACTION CLINICAL HISTORY: Abdominal pain. COMPARISON: Right upper quadrant ultrasound December 21, 2016. TECHNIQUE: 5.149 mCi of technetium 99m Choletec IV was injected at 10:50 AM on December 29, 2016. Immediately following injection, imaging of the abdomen was carried out for 60 minutes in the anterior projection. At this time, 1.3 mcg of Sincalide was injected IV as per protocol. Imaging was performed for an additional 45 minutes to estimate a gallbladder ejection fraction. FINDINGS: Hepatic uptake of radiotracer is prompt and homogeneous. Activity is identified within the common bile duct at 10 minutes. Small bowel activity is first noted at 20 minutes. Gallbladder activity is first identified at 40 minutes. Gallbladder ejection fraction was estimated at 83%. This is within normal limits. Normal is greater than 30-35%. IMPRESSION: 1. Normal hepatobiliary scan. No evidence of acute or chronic cholecystitis. 2. Normal gallbladder ejection fraction of 83%. Electronically signed by: Neeraj Carrera M.D. 12/29/2016 1:10 PM Dictated Date/Time: 12/29/2016 1:07 PM
== END | disposition home or self-care (01) ==
LOC: C.NUCL 09:57
PROVIDERS: ATTEND Physician Assistant
DX: E80.6 Other disorders of bilirubin metabolism (principal); R10.9 Unspecified abdominal pain; R93.2 Abnormal findings on diagnostic imaging of liver and biliary tract

== ENCOUNTER → 2017-02-26 | Day surgery (SDC) | payer BC ==
[~2017-02-26] VITALS: Ht 162.6 cm; Wt 64.0 kg
[~2017-02-26] MED LIST changes: -BRIN3SUS OPL; +DORZ1SOL6 OPL; -PHYT100T PO; +SIME1CHW3 PO; -ZNTT/150 PO
[2017-02-26 08:32] VITALS: BP 167/80; PULSE 70; TEMP 36.5; O2SAT 97; Ht 162.6 cm; Wt 64.0 kg
== END | disposition home or self-care (01) ==
LOC: C.MTU 08:13
PROVIDERS: ATTEND Internal Medicine Gastroenterology
DX: R14.0 Abdominal distension (gaseous) (principal)

== ENCOUNTER → 2017-03-06 | Outpatient (CLI) | payer BC ==
[~2017-03-06] MED LIST changes: +DILT30TA PO; +DORZ1SOL6 OP; -DORZ1SOL6 OPL; -SIME1CHW3 PO
--- NOTE | 2017-03-07 14:10 | MAMMOGRAPHY REPORT ---
BILATERAL DIGITAL SCREENING MAMMOGRAM TOMOSYNTHESIS WITH CAD: 03/06/2017 CLINICAL HISTORY: Routine screening. TECHNIQUE: Breast tomosynthesis in addition to standard 2D mammography was performed. Current study was also evaluated with a Computer Aided Detection (CAD) system. COMPARISON: Comparison is made to exams dated: 03/09/2015 mammogram, 12/10/2012 mammogram, 10/20/2010 [facility], 04/03/2008, and 03/20/2007. BREAST COMPOSITION: There are scattered areas of fibroglandular density in both breasts. FINDINGS: There is a stable benign rim calcification in the upper outer left breast. No suspicious m ass, architectural distortion or cluster of suspicious microcalcifications is seen. IMPRESSION: ACR BI-RADS CATEGORY 1: NEGATIVE There is no mammographic evidence of malignancy. A 1 year screening mammogram is recommended. The pa tient will receive written notification of the results. Approximately 10% of breast cancers are not detected with mammography. A negative mammographic report should not delay biopsy if a clinically suggestive mass is present. Hetal Jackson M.D. ay/:03/06/2017 16:15:54 Escalator Operator: Austin Tracy RT(R)(M), [facility] letter sent: Normal 1/2 BI-RADS Code: ACR BI-RADS Category 1: Negative
== END | disposition home or self-care (01) ==
LOC: C.MAMM 15:48
PROVIDERS: ATTEND Obstetrics & Gynecology
DX: Z12.31 Encounter for screening mammogram for malignant neoplasm of breast (principal)

== ENCOUNTER → 2017-04-02 | Outpatient (CLI) | payer OTHER ==
--- NOTE | 2017-04-02 12:12 | DIAGNOSTIC IMAGING REPORT ---
ULTRASOUND KIDNEYS AND BLADDER CLINICAL HISTORY: Follow-up complex renal cyst. COMPARISON STUDY: Abdominal CT dated 03/02/2015. Abdominal MRI dated 03/07/2016. TECHNIQUE: Real-time, grayscale, and color flow sonography of the kidneys and bladder is performed. Images are reviewed in the transverse and longitudinal planes. FINDINGS: Kidneys: The kidneys demonstrate mild cortical atrophy end are normal in echotexture. The right kidney measures 9.8 cm in length and the left kidney measures 10.0 cm in length. There is no hydronephrosis. No shadowing renal calculi are identified. A minimally complex/septated cyst in the left upper pole measures 2.8 x 2.1 x 2.2 cm. 2 small cyst identified in the right kidney measuring up to 1.5 cm. The largest contains a thin internal septation. There is no sonographic evidence of contour deforming renal mass lesion. No perinephric fluid is identified. Bladder: The bladder is decompressed and not evaluated. Ureteral jets were not seen. IMPRESSION: 1. The kidneys demonstrate mild cortical atrophy and are without hydronephrosis. 2. Bilateral renal cysts as above. 2 of these are minimally complex and not significantly changed from prior studies. 3. The bladder was decompressed and not well assessed. Electronically signed by: Javid Valdez M.D. 04/02/2017 12:11 PM Dictated Date/Time: 04/02/2017 12:08 PM
== END | disposition home or self-care (01) ==
LOC: C.ULTR 11:07
PROVIDERS: ATTEND Urology
DX: N28.1 Cyst of kidney, acquired (principal); N26.1 Atrophy of kidney (terminal)

== ENCOUNTER → 2017-06-11 | Outpatient (CLI) | payer OTHER | END | disposition home or self-care (01) | LOC: C.LAB 08:41 | PROVIDERS: ATTEND Internal Medicine | DX: E78.5 Hyperlipidemia, unspecified (principal); E55.9 Vitamin D deficiency, unspecified ==

== ENCOUNTER → 2017-07-09 | Outpatient (CLI) | payer OTHER ==
[~2017-07-09] MED LIST changes: +HYDR12.55 PO; +LOSA50TA6 PO
[2017-07-09 13:16] LABS: HEMATOCRIT 44.9 % (37-47); HEMOGLOBIN 15.1 g/dL (12.0-16.0); MEAN CELL VOLUME 89.3 fL (80-100); MEAN CORPUSCULAR HGB CONC 33.6 g/dl (32-36); MEAN PLATELET VOLUME 9.8 fL (7.4-10.4); PLATELET COUNT 286 K/uL (130-400); RED CELL DISTRIBUTION WIDTH CV 13.8 % (11.5-14.5); WHITE BLOOD COUNT 6.19 K/uL (4.8-10.8)
[2017-07-09 13:44] LABS: BLOOD UREA NITROGEN 18 mg/dl (7-18); CALCIUM 9.4 mg/dl (8.5-10.1); CARBON DIOXIDE 26 mmol/L (21-32); CREATININE 0.95 mg/dl (0.60-1.20); GLUCOSE 80 mg/dl (70-99); POTASSIUM 4.2 mmol/L (3.5-5.1); SODIUM 138 mmol/L (136-145)
== END | disposition home or self-care (01) ==
LOC: C.LAB 12:05
PROVIDERS: ATTEND Internal Medicine
DX: I10 Essential (primary) hypertension (principal)